=== PATIENT | female | born 1960 | race American Indian/Alaskan Native ===

== ENCOUNTER 2020-10-02 10:56 | Outpatient (CLI) | payer OTHER ==
--- NOTE | 2020-10-02 11:43 | XRay Report ---
LUMBAR SPINE 3 VIEWS INDICATION / CLINICAL INFORMATION: BACK PAIN. COMPARISON: None available. FINDINGS: Mild narrowing of the L4-5 disc space with mild diffuse degenerative change in the lower lumbar regio n. No other significant skeletal abnormality. Alignment is normal. Signer Name: Edil Martin MD FACEdy Signed: 10/02/2020 11:38 AM Workstation Name: [email or web address][id number]
== END 2020-10-02 10:57 | disposition home or self-care (01) ==
LOC: XRAY 10:56
PROVIDERS: ATTEND Internal Medicine
DX: M47.816 Spondylosis without myelopathy or radiculopathy, lumbar region (principal); M48.061 Spinal stenosis, lumbar region without neurogenic claudication
CPT/HCPCS: 72100